=== PATIENT | male | born 1955 | race Caucasian/White ===

== ENCOUNTER 2017-02-08 05:00 | Day surgery (SDC) | payer MEDICARE ==
--- NOTE | 2017-02-06 13:37 | RAD ---
EXAM DESCRIPTION: Chest,2 Views CLINICAL HISTORY: pre op COMPARISON: None available FINDINGS: The cardiomediastinal silhouette is unremarkable. No airspace consolidation or pleural effusion. The bronchovascular markings are within normal limits. The lung volumes are at the upper limits of normal range. Postoperative changes are noted in the right shoulder and cervical spine, only partially visualized. No fracture or pneumothorax. There are mild degenerative changes at a few levels in the lower thoracic spine. IMPRESSION: Postoperative and mild degenerative changes, but no acute intrathoracic abnormality. Electronically signed by: Benjamín Pacheco MD 02/06/2017 1:36 PM CDT
[2017-02-08] MEDS ORDERED: SODIUM CHL 0.9% 100ML MINI-BAG 100 ML IVPB ONE (06:36)
[2017-02-08] MEDS ORDERED: ceFAZolin SODIUM 1 GM VIAL ONE (06:37)
[2017-02-08] MEDS ORDERED: LACTATED RINGERS 1,000 ML ONE (06:37)
[2017-02-08] MEDS ORDERED: BUPIVACAINE 0.25% W/EPI 50 ML VIAL INJ ONE (06:55)
[2017-02-08] MEDS ORDERED: PROPOFOL 200 MG/20 ML VIAL IV ONE (07:00)
[2017-02-08] MEDS ORDERED: fentaNYL CITRATE INJ 50 MCG/ML AMP ONE (08:00)
[2017-02-08] MEDS ORDERED: LIDOCAINE 2 % GEL 5 ML TUBE TOP ONE (08:00)
--- NOTE | 2017-02-08 10:47 | OP ---
DATE OF PROCEDURE: 02/08/17 PREOPERATIVE DIAGNOSIS: 1. Recurrent right inguinal hernia. POSTOPERATIVE DIAGNOSIS: 1. Right inguinal hernia. PROCEDURE: 1. Repair of right inguinal hernia. SURGEON: Isidoro Trejo MD. INSIDE PLANT SUPERVISOR: None. ANESTHESIA: Local infiltration of 0.25% Marcaine with epinephrine and general anesthesia. INDICATION: The patient is a 61-year-old male who had a tender mass in his right groin. It had been present for some time. It had become increasingly uncomfortable and he also has knee surgery scheduled for a knee replacement and he wishes to have the hernia repaired prior to this so he could go through rehab more easily. He was brought to the Surgical Suite today for repair of the right inguinal hernia after the risks, benefits and alternatives to the procedure were discussed and accepted. FINDINGS: The patient had a large indirect hernia, a small cord lipoma and a generalized weakness of the floor of the canal without discrete herniation. There was no evidence of previous surgery on the inguinal canal or the cord. PROCEDURE: After the patient was brought to the Surgical Suite and placed in supine position, he underwent general anesthesia and was prepped and draped in the usual sterile manner. He was given IV Ancef preoperatively. A surgical time-out was taken. An oblique incision was fashioned in the right lower quadrant, first with a marking pen and then with infiltration of anesthesia. The skin was incised with a knife and dissection was carried down through the skin and subcutaneous tissue to the external oblique fascia using electrocautery and blunt dissection. The external oblique fascia was then opened in the direction of the fibers through the external inguinal ring. The external oblique fascia was dissected free from the floor of the canal, as was the spermatic cord. A half inch [place] drain was placed around the cord for traction. The cord was then explored and the indirect hernia sac was dissected free down to the level of the internal ring. A small lipoma was dissected using clamps and ligatures of 3-0 Vicryl. When this was done, the floor was noted to have just some looseness without discrete herniation, so the floor of the canal medial to the vessels was imbricated with interrupted 2-0 Vicryl [id number] sutures. When this was done, a Surgimesh patch was introduced under the floor of the canal and sutured circumferentially with interrupted 2-0 Vicryl sutures. The wound was irrigated with saline. Hemostasis was noted to be adequate. The Surgimesh patch was then sutured around the cord in the floor of the canal in the usual manner with 2-0 Vicryl simple sutures. The wound was then irrigated with saline. Again, hemostasis was noted to be adequate. The nerve, which had previously been dissected free, and the cord were placed back in position in the canal. The external oblique fascia was closed with a running 3-0 Vicryl suture. At this point, the cord and the subcutaneous tissue above, below and lateral to the incision were infiltrated with local anesthesia. Basilio's fascia was approximated with simple sutures of 3-0 Chromic. Skin edges were approximated with a skin stapler. Sterile dressings were applied. The testicle was checked for position in the scrotum. The patient was awakened and taken to the Recovery Room in stable condition. Estimated blood loss was less than 50 mL. All sponge, needle and instrument counts were correct. #[id number] [facility]
[2017-02-08 11:09] VITALS: O2SAT 99
[2017-02-08 11:51] VITALS: BP 132/82; TEMP 98
== END 2017-02-08 11:49 | disposition home or self-care (01) ==
LOC: AMB 05:00
PROVIDERS: ATTEND Surgery
DX: K40.91 Unilateral inguinal hernia, without obstruction or gangrene, recurrent (principal); D17.6 Benign lipomatous neoplasm of spermatic cord; I10 Essential (primary) hypertension; K21.9 Gastro-esophageal reflux disease without esophagitis; Z96.652 Presence of left artificial knee joint; Z96.643 Presence of artificial hip joint, bilateral; Z87.891 Personal history of nicotine dependence
CPT/HCPCS: 00830; 36415; 49520; 71020; 80048; 81001; 85025; 93005; C1781; J0690; J3010; J3490; J7050; J7120

== ENCOUNTER → 2018-05-14 | Outpatient (CLI) | payer MEDICARE | LOC: GMAE 14:36 | PROVIDERS: ATTEND Family Medicine | DX: R03.0 Elevated blood-pressure reading, without diagnosis of hypertension (principal); R53.82 Chronic fatigue, unspecified; Z12.5 Encounter for screening for malignant neoplasm of prostate; Z11.59 Encounter for screening for other viral diseases | CPT/HCPCS: 86803; G0103 ==

== ENCOUNTER → 2018-05-20 | Outpatient (CLI) | payer MEDICARE ==
--- NOTE | 2018-05-20 15:14 | US ---
EXAM DESCRIPTION: Liver: ULTRASOUND. CLINICAL HISTORY: F10.10 COMPARISON: Gallbladder ultrasound 08/01/2011. TECHNIQUE: Transabdominal scannin-dimensional and Doppler modes. FINDINGS: Gallbladder: Surgically removed. No fluid in the gallbladder fossa. Non-tender with transducer pressure. Common bile duct: caliber 3 mm within normal limits. Liver: Increased echogenicity; contour liver capsule smooth where seen. No fluid around the liver. Intrahepatic biliary ducts normal caliber. Doppler hepatopedal flow portal vein. Long axis right lobe 14.2 cm. Pancreas: normal size and echogenicity of the included tissue. Duct not seen. Right kidney: long axis measures 10.7 cm. Slightly increased cortical Echogenicity. Minimal cortical thinning. Smooth capsule. No hydronephrosis. Abdominal aorta normal caliber from the proximal segment to the distal bifurcation. IMPRESSION: 1. Prior cholecystectomy since the prior study. Nontender. No fluid in the gallbladder fossa or Morison's pouch. 2. Hepatic steatosis since the prior study but not enlarged. Smooth capsule with no ascites. Normal vascularity and ducts. 3. Normal caliber of the abdominal aorta. Included pancreas is unremarkable. Right kidney normal size with minimal cortical echogenicity and thinning but no hydronephrosis. Electronically signed by: Ralph Harris MD 05/20/2018 3:12 PM DESK EDITOR
== END ==
LOC: US 08:45
PROVIDERS: ATTEND Family Medicine
DX: F10.10 Alcohol abuse, uncomplicated (principal); Z13.89 Encounter for screening for other disorder; K76.0 Fatty (change of) liver, not elsewhere classified; Z90.49 Acquired absence of other specified parts of digestive tract

== ENCOUNTER → 2018-05-30 | Outpatient (CLI) | payer MEDICARE, OTHER ==
--- NOTE | 2018-05-30 10:49 | CT ---
Procedure: CT LUNG SCREENING Exam Date: 05.30.2018. Ordering Provider: Rohit Townsend Clinical Indication: HISTORY OF TOBACCO DEPENDENCY This patient meets eligibility criteria for low-dose CT lung cancer screening. Comparison: Chest x-ray 02/06/2017. Technique: Using a multislice scanner, sequential helical axial imaging was obtained in the thorax, 2.5 mm thickness, 2.5 mm separation, from the level of the thoracic inlet through the lung bases without IV contrast. A low dose protocol was utilized: CTDI: 1.77 mGy. 120. kVp. 45 mA. DLP 72.36 mGy-centimeters. 2D sagittal and coronal reconstructed images, 6.0 mm thickness, were obtained. This exam was performed according to our departmental dose optimization program which includes use of automated exposure control, adjustment of the mA and/or kV according to patient size and/or use of iterative reconstruction technique. Nodule measurements under 10 mm are given as mean value of 3 axes diameters. FINDINGS: Lungs and large airways: 10 cm solid density associated with the right apical pleura or abutting the pleura. Lung axial series 2, image 14. Scarring in the inferior lingula and inferior right middle lobe. Bilateral parenchymal blebs In the lung parenchyma more prevalent upper lobes and decreasing in frequency toward the lung bases. No abnormal masses or focal infiltrates. Pleura and space: Multiple bilateral foci of pleural thickening especially abutting the upper lobes. Bilateral apical pleural thickening more on the left. No effusion or pneumothorax. Mediastinum and grace: evaluation limited by low dose technique and lack of IV contrast. No enlarged lymph nodes or soft tissue masses. Heart and great vessels: Atherosclerotic calcification in the coronary arteries, proximal brachiocephalic vessels, aortic arch and distal descending thoracic aorta. Chest wall, lower neck, axillae: Evaluation also limited by same factors as described above. Negative. Upper abdomen: No fluid or soft tissue mass in the included peritoneal space. Included adrenal gland and spleen normal size and density. Surgical clips in the gallbladder fossa with no fluid. Osseous structures: Evaluation limited by low dose MIP technique. Minimal endplate ridging on the thoracic spine. No blastic or lytic lesions. Bilateral sternoclavicular arthrosis. IMPRESSION: 10 cm solid density associated with right apical pleural thickening versus 10 cm solid nodule. Emphysematous changes in the upper lobes of the lungs. Bilateral pleural thickening most prominent abutting the upper lobes. No definitive nodules, masses, or infiltrates. See the following for [facility] Best Practice recommendations. Please see below for Lung RADS category and FOLLOW-UP.* *Lung RADS category Category 4a - Findings for which additional diagnostic testing and/or tissue sampling is recommended (5 - 15% malignancy probability). Nodules: Solid nodule(s) 8mm to less than 15mm at baseline, new 6mm to under 8mm solid nodule, or growing less than 8mm nodule. Follow-up: Please return for a Low Dose Chest CT in 3 months for re-evaluation. Electronically signed by: Ralph Harris MD 05/30/2018 10:47 AM [facility]
== END ==
LOC: CT 08:00
PROVIDERS: ATTEND Family Medicine
DX: Z87.891 Personal history of nicotine dependence (principal)

== ENCOUNTER → 2018-10-21 | Outpatient (CLI) | payer MEDICARE, OTHER ==
--- NOTE | 2018-10-22 08:51 | CT ---
EXAM DESCRIPTION: Chest w/o Contrast : Computed Tomography. CLINICAL HISTORY: 63 years Male LUNG NODULE, TOBACCO USE. Follow-up to abnormal baseline low-dose lung screening chest CT scan COMPARISON: BASELINE LOW-DOSE LUNG SCREENING CHEST CT SCAN 05/30/2018. CT scan the abdomen and pelvis without contrast 07/27/2011. TECHNIQUE: Spiral-axial scans at 2.5 x 5 mm intervals through the lungs and thorax without IV contrast. 2.5 mm lung algorithm axial reconstructions. Sagittal and coronal 2.0 Mm reconstructions. No adverse reactions. Total Exam DLP: 655.52 mGy-cm. This exam was performed according to our departmental dose-optimization program which includes automated exposure control, adjustment of the mA and/or kV according to patient size and/or use of iterative reconstruction technique; to reduce radiation dose to as low as reasonably achievable (ALARA). Nodule measurements under 10 mm are given as mean value of 3 axes diameters. FINDINGS: Lungs and large airways: Stable subpleural 1 cm nodule versus right apical pleural thickening. No new nodules, no abnormal nodules or masses. No focal infiltrate.. Pleural spaces: Bilateral multifocal pleural thickening. More the apices. No pleural effusion or pneumothorax. Mediastinum and Carlotta: Evaluation limited due to lack of IV contrast. No enlarged lymph nodes or soft tissue masses. Great vessels and Heart: Evaluation limited due to lack of IV contrast.. Coronary artery calcification. Atherosclerotic calcifications and some of the included brachiocephalic vessels and thoracic aorta. Soft tissues of neck base, axillae, and chest wall: Evaluation limited due to lack of IV contrast.. Negative. Upper abdomen: No fluid or free air in the included peritoneal space. Normal size and density of the bilateral adrenal glands and the spleen. Heterogeneous predominantly low-density in the upper segment of the right hepatic lobe. Slight heterogeneity of the liver on the prior abdominal CT scan in 2011. This may be related to fatty infiltration. Surgical clips in the gallbladder fossa. Atherosclerotic changes in the abdominal aorta. Osseous structures: Decreased bone density. Spondylosis of the thoracic spine and arthrosis of the sternoclavicular joints. Prior surgical repair right shoulder. Mild arthrosis. Mild scoliosis. IMPRESSION: 1. Stable subpleural nodule versus pleural thickening right apex. No change in multiple focal pleural thickening. No new nodules, masses, or infiltrates. [facility] Best Practice guidelines: Please see below for lung RADS category and imaging recommendations*. *CATEGORY 2S- Nodules with a very low likelihood (less than 1%) of becoming a clinically active cancer due to size or lack of growth. Nodules: Perifissural nodule(s) < 10 mm. (526mm3). Solid or part solid nodule(s) less than 6mm (113.1 mm3), new solid nodule less than 4mm (33.5 mm3). Ground glass nodule(s) less than 30mm (25520.2 mm3) or unchanged or slow growing ground glass nodule 30mm or greater. Cat 3 or 4 nodule unchanged for 3 or more months. FOLLOW-UP: Continue annual screening with a Low Dose Chest CT in 12 months for re-evaluation. 2. CATEGORY S: Lung RADS Modifier S - Clinically Significant or Potentially Clinically Significant Findings (non lung cancer). Ill-defined region of low-density in the upper right liver. Not as well seen on the prior screening study. Most likely fatty replacement. Consider triple phase CT scan of the liver without and with IV contrast. Electronically signed by: Ralph Harris MD 10/22/2018 8:48 AM CDT
== END ==
LOC: CT 11:14
PROVIDERS: ATTEND Family Medicine
DX: Z87.891 Personal history of nicotine dependence (principal); R91.1 Solitary pulmonary nodule

== ENCOUNTER → 2019-04-14 | Outpatient (CLI) | payer MEDICARE ==
--- NOTE | 2019-04-14 11:25 | CT ---
CT CHEST WITHOUT IV CONTRAST HISTORY: 63 years Male COPD COMPARISON: October 21, 2018; May 30, 2018. TECHNIQUE: Helical tomographic images of the chest were obtained without the use of intravenous contrast. Coronal and sagittal reformatted images were also provided. This exam was performed according to our departmental dose-optimization program, which includes automated exposure control, adjustment of the mA and/or kV according to patient size and/or use of iterative reconstruction technique. FINDINGS: Lungs and central airways: Redemonstrated radiologic changes of emphysema. Unchanged appearance of bilateral lung apices, likely customer field representative of scarring. This includes the previously noted subpleural opacities. No suspicious pulmonary nodule or mass. Pleura: No pleural effusion or pleural thickening. Heart/pericardium: Heart size is normal. No significant pericardial fluid detected. Mediastinum/grace: Unremarkable. Vascular structures: There are scattered atherosclerotic changes noted, including involvement of the coronary arteries. Regional surrounding soft tissues: Unremarkable. Bones: No acute process detected. Right scapula fixation screw again demonstrated, unchanged. Included abdomen: There is diffuse hypoattenuation of the liver, compatible with hepatic steatosis. Gallbladder is surgically absent. IMPRESSION: No suspicious pulmonary nodule or mass. Hepatic steatosis. Electronically signed by: Uday Chan MD 04/14/2019 11:24 AM MOBILE SALES TECHNICIAN
== END ==
LOC: CT 10:23
PROVIDERS: ATTEND Internal Medicine
DX: J44.9 Chronic obstructive pulmonary disease, unspecified (principal); K76.0 Fatty (change of) liver, not elsewhere classified

== ENCOUNTER → 2019-10-29 | Outpatient (CLI) | payer MEDICARE, OTHER ==
--- NOTE | 2019-10-30 08:34 | CT ---
Procedure: CT LUNG SCREENING Exam Date: October 29, 2019. Ordering Provider: Rohit Townsend Clinical Indication: PERSONAL HISTORY OF NICOTINE DEPENDENCE smoking cessation x7 years. 90 pack years This patient meets eligibility criteria for low-dose CT lung cancer screening. Comparison: CT scan chest without contrast March and September 2018. Low-dose CT lung cancer screening April 2018. Technique: Using a multislice scanner, sequential helical axial imaging was obtained in the thorax, 2.5 mm thickness, 2.5 mm separation, from the level of the thoracic inlet through the lung bases without IV contrast. A low dose protocol was utilized for BMI less than 30: BMI: 29.1. CTDI: 1.76 mGy. 120. kVp. 45 mA. DLP 78 mGy-cm. 2D sagittal and coronal reconstructed images, 6.0 mm thickness, were obtained. This exam was performed according to our departmental dose optimization program which includes use of automated exposure control, adjustment of the mA and/or kV according to patient size and/or use of iterative reconstruction technique. Nodule measurements under 10 mm are given as mean value of 3 axes diameters. FINDINGS: Lungs and large airways: Pleural parenchymal scarring bilateral apices more on the left stable. Minimal bilateral blebs in a centrilobular distribution stable. Minimal bilateral perihilar peribronchial wall cuffing. Groundglass nodules 3 mm and less in the left upper lobe stable. Bilateral subpleural densities and groundglass nodules 3 mm and less. Minimal pleural-parenchymal scarring in the middle lobe and the inferior lingula as well as the bilateral lower lobes. No new nodules and no masses. No focal infiltrates. Pleura and space: Bilateral multifocal thickening and bilateral apical pleural scarring stable. Mediastinum and grace: evaluation limited by low dose technique and lack of IV contrast. Small lymph nodes with no dominant soft tissue masses. No interval change. Heart and great vessels: Coronary artery calcifications and atherosclerotic calcifications in the brachiocephalic vessels and aorta no change from the prior study. Chest wall, lower neck, axillae: Evaluation also limited by same factors as described above. Unremarkable. Upper abdomen: Evaluation limited by low-dose technique. No free air or free fluid. Adrenal glands and spleen negative. Surgical clips gallbladder fossa with a rim calcified nodular mass or object in the gallbladder fossa stable. Osseous structures: Evaluation limited by low dose MIP technique. Diffuse thoracic spondylosis mid segments. Bilateral sternoclavicular and glenohumeral arthrosis more on the left. IMPRESSION: Small subclinical subpleural nodules and groundglass nodules bilaterally stable. Minimal emphysematous changes unchanged. No new nodules and no masses. No focal infiltrates. [facility] Best Practice Recommendations: please see below for Lung RADS category and FOLLOW-UP.* *Lung RADS category CATEGORY 2- Nodules with a very low likelihood (less than 1%) of becoming a clinically active cancer due to size or lack of growth. Nodules: Perifissural nodule(s) < 10 mm. (526mm3). Solid or part solid nodule(s) less than 6mm (113.1 mm3), new solid nodule less than 4mm (33.5 mm3). Ground glass nodule(s) less than 30mm (98599.2 mm3) or unchanged or slow growing ground glass nodule 30mm or greater. Cat 3 or 4 nodule unchanged for 3 or more months. FOLLOW-UP: Continue annual screening with a Low Dose Chest CT in 12 months for re-evaluation. . Electronically signed by: Ralph Harris MD 10/30/2019 8:33 AM CDT
== END ==
LOC: CT 09:37
PROVIDERS: ATTEND Family Medicine
DX: Z87.891 Personal history of nicotine dependence (principal); R91.8 Other nonspecific abnormal finding of lung field; J43.9 Emphysema, unspecified; Z12.5 Encounter for screening for malignant neoplasm of prostate; I10 Essential (primary) hypertension
CPT/HCPCS: 84443; G0103; G0297

== ENCOUNTER → 2020-03-19 | Outpatient (CLI) | payer MEDICARE, OTHER ==
--- NOTE | 2020-03-19 17:11 | CT ---
EXAM DESCRIPTION: Chest w/o Contrast CLINICAL HISTORY: 64 years, Male, SOLITARY LUNG NODULE COMPARISON: Previous screening CT examination of the lungs October 29, 2019 TECHNIQUE: Thin-section noncontrast axial CT images are obtained according to our protocol. Reconstructed MPR images are created and reviewed as well. FINDINGS: Lungs: No consolidating pulmonary infiltrate or groundglass infiltrate. Biapical pleural-parenchymal scarring. In areas of scarring, few punctate subpleural densities are seen which could be construed as tiny nodules that are thought more likely part of the fibrotic changes. No nodules above the size of 1 to 2 mm. These are considered punctate and no measurements are obtained. No change compared to previous study. No worrisome pulmonary mass or nodule. Mediastinum: Lymph nodes are normal in size. Normal vascular contours. Heart size is normal with no pericardial effusion. Chest wall/axilla: No mass or adenopathy. Lower neck/supraclavicular: No mass or adenopathy. Upper abdomen: Unremarkable upper abdominal viscera. Coronal and sagittal reformatted images confirm the findings. Extensive coronary arterial calcification. IMPRESSION: No active process is identified in the chest. Subpleural scarring and punctate granulomas appears stable. This exam was performed according to our departmental dose-optimization program, which includes automated exposure control, adjustment of the mA and/or kV according to patient size and/or use of iterative reconstruction technique. Total DLP equals 784.22 mGycm. Electronically signed by: Trip Lawrence MD 03/19/2020 5:09 PM RESEARCH DEVELOPMENT DIRECTOR
== END ==
LOC: CT 10:30
PROVIDERS: ATTEND Internal Medicine
DX: R91.1 Solitary pulmonary nodule (principal); J98.4 Other disorders of lung

== ENCOUNTER 2020-06-06 16:45 | Emergency (ER) | payer MEDICARE, OTHER ==
[2020-06-06] MEDS ORDERED: SODIUM CHLORIDE 0.9% 1000ML 1,000 ML IVS PRN (17:01)
[2020-06-06] MEDS ORDERED: SODIUM CHLORIDE 0.9% (FLUSH) 10 ML SYG IV PRN (17:01)
--- NOTE | 2020-06-06 17:08 | ED.PDOC ---
History of Present Illness - General Chief Complaint: Neuro Symptoms/Deficits Time Seen by Provider: 06/06/20 16:58 Source: patient, RN notes reviewed, Vital Signs reviewed, EMS notes reviewed, family Exam Limitations: no limitations - History of Present Illness Initial Comments: Pt presents via EMS for decreased LOC. Per 2 sons at the bedside, pt has h/o alcohol abuse. they have not seen him for 3-4 days and when they went to his house today he was difficult to arouse and called EMS. Pt is somnolent and unable to provide additional history. Last known normal was 3 days ago. Son states bruising to left chest wall and right 2nd toe are new from 3 days ago. Pt moans but does not answer questions. Allergies/Adverse Reactions: Allergies NO KNOWN ALLERGY Allergy (Verified 06/06/20 17:13) Home Medications: Ambulatory Orders NK 02/08/17 Review of Systems - Review of Systems Unable to Obtain Due To: clinical condition Past Medical History (General) - Patient Medical History Hx Congestive Heart Failure: No Hx Diabetes: No Hx MRSA: No Family Medical History - Family History Mother Family History: Unknown Living Status: Physical Exam - Physical Exam General Appearance: Unkempt, Other - Pt moans and grabs at staff and IV, but does not answer questions. Smells of ETOH Eye Exam: bilateral normal - PERRL Ears, Nose, Throat: other - Head is atraumatic, oral mucosa is dry Neck: non-tender, supple, other - No vertebral tenderness Respiratory: lungs clear, normal breath sounds, no respiratory distress, other - 8 cm area of contusion to left lateral ribs and tenderness in this area Cardiovascular/Chest: normal peripheral pulses, regular rate, rhythm, no edema Gastrointestinal/Abdominal: non tender, soft, no pulsatile mass Back Exam: normal inspection, no CVA tenderness, no vertebral tenderness Extremity: other - FROM in all 4 extremities w/o pain. There is abrasion with edema to right 2nd toe. No laceration or bleeding Neurologic: other - Pt is alert, but noncooperative. No facial droop. he is moving all 4 extremities. Does not follow commands Skin Exam: warm/dry Progress - Progress Progress: 06/06/20 17:12 Pt presents with decreased LOC. Last known normal was 3 days ago. Has h/o alcohol abuse. Will get CT brain to eval for ICH vs CVA and trauma scans. Give IVF and observe in ED. Two sons at bedside. 06/06/20 19:00 Pt has been noncooperative with CT so held for now. Due to ETOH>560, he is not a good candidate for sedation. I think his change in MS is due to alcohol intoxication. Will continue to monitor in ED. Son asked to speak with me and states pt has told him recently that he is tired of living like this. Son is concerned pt may be trying to kill himself by drinking himself to . I have told son that once pt is more conversational, will request behavior health evaluation with [facility]. 06/07/20 00:15 Pt is alert and conversational. Will ask [facility] for psych evaluation. Pt is medically cleared for psych evaluation. 06/07/20 00:55 [facility] has evaluated patient. No SI and not a danger to self or others at this time. They have scheduled outpatient f/u with him and will help find inpatient rehab if he is willing. I have discussed this with patient and he agrees with plan of care and requesting to go home. He denies any intent to harm himself and feels comfortable going home with his son. 06/07/20 05:12 Pt awaiting ride. He is ambulatory in ED and clinically sober. no slurred speech. He is answering questions appropriately. Will continue to observe in ED while pt attemptng to find a ride. - Results/Orders Results/Orders: EKG- rate 121, sinus tachycardia, nml intervals, no ST abnormality CT BRAIN FINDINGS: Multiple transaxial tomograms of the brain were obtained from the base of the skull to the vertex without contrast. 2-D multiplanar reformats and the coronal and sagittal plane were performed and reviewed. An individualized dose optimization technique, Automated Exposure Control, was utilized for the performed procedure. Motion artifact limits the evaluation. Grossly the parenchyma demonstrate no major areas of acute fracture and/or significant major plane shift. Grossly the lateral ventricles and cisterns displace normal appea elysia. No major intra or extra axial fluid collections were seen. There is no significant major fracture. There is status post prior left frontoparietal craniotomy orbits demonstrate to be clear. IMPRESSION: SEVERELY COMPROMISED STUDY LIMITING DIAGNOSTIC VALUE. IF CONCERN REPEAT HEAD CT COULD BE OF ASSISTANCE. THERE IS STATUS POST PRIOR LEFT CRANIOTOMY. NO SIGNIFICANT MAJOR AREAS OF ACUTE HEMORRHAGE WITHIN THE LIMITED EVALUATION. CT CERVICAL SPINE FINDINGS: There is a status post cervical fusion with the anterior plate fixation device at C3/C4. Small anterior osteophytes/bone bridging is noted at C4/C5 and small anterior spondylosis is identified at C6/C7. The rest of the alignment, vertebral body heights are normal. There is no evidence of fracture or subluxation. Minimal degenerative disc disease is noted at C2/C3 and C4/C5 C6/C7 there is degenerative disc disease anterior arch of C1 and C2. There is no significant spinal canal stenosis and/or significant neural foraminal narrowing. There is fusion of the uncovertebral joint of C2/C3 C3/C4 along the right and left side. There is uncovertebral degenerative changes at C4-C7. There is no prevertebral soft tissue swelling. Sagittal coronal reformatted images demonstrate no subluxation or bony abnormalities. IMPRESSION: STATUS POST ANTERIOR PLATE FIXATION DEVICE WITH BONE GRAFTING AT C3/C4. MULTILEVEL DEGENERATIVE DISC DISEASE WITH NO DEFINITIVE EVIDENCE FOR SPINAL CANAL STENOSIS. CT CERVICAL SPINE NEGATIVE FOR FRACTURE OR SUBLUXATION. CT CHEST/ABD/PELVIS IMPRESSION: COMPARTMENT STUDY DUE TO MOTION ARTIFACT LIMITING DIAGNOSTIC VALUE. ATHEROSCLEROTIC DISEASE CORONARY ARTERIES. NO GROSS ABNORMALITIES. IMPRESSION: FATTY FILTRATION OF THE LIVER. STATUS POST CHOLECYSTECTOMY. BILATERAL HIP ARTHROPLASTY IMAGED EVALUATION OF THE PELVIS. DISTENDED URINARY BLADDER 2.8 CM INFRARENAL ABDOMINAL AORTIC ANEURYSM SUSPECTED. RECOMMEND FOLLOW- UP EVERY 5 YEARS.( REFERENCE: J AM EVAN RADIOL 2013; [id number]). NO DEFINITIVE EVIDENCE FOR ACUTE INTRA-ABDOMINAL PROCESS. RIGHT FOOT XRAY FINDINGS: Two x-ray views of the right foot were submitted. Frontal view is not available. There is no acute fracture or dislocation. Bone mineralization is within normal limits. There is no radiopaque foreign body material. There is an enthesophyte at the plantar aspect of the calcaneus. IMPRESSION: No acute fracture or dislocation. CHEST XRAY FINDINGS: Cardiac silhouette is within normal limits. Decreased lung volumes could be secondary to underinflation. EKG leads project over the chest. There is no focal parenchymal or pleural disease. There is no acute osseous process visualized. IMPRESSION: No evidence of acute cardiopulmonary disease. 06/06/20 17:01 Sodium Chloride 0.9% (Flush) [Saline Flush Syringe] 10 ml IV PRN PRN Sodium Chloride 0.9% 1000ML [Ns 1000 ml] 1,000 ml IVS .QD EKG Stat 06/06/20 17:02 Hold Metformin x 48Hrs [id number] 06/07/20 09:00 Pulse Ox Daily Laboratory Results - last 24 hr 06/06/20 06/06/20 06/06/20 17:13 17:13 17:13 WBC 6.9 RBC 4.04 L Hgb 13.1 L Hct 38.7 L MCV 95.7 H MCH 32.3 H MCHC 33.7 RDW 16.2 H Plt Count 150 MPV 7.5 Absolute Neuts (auto) 4.10 Absolute Lymphs (auto) 2.20 Absolute Monos (auto) 0.50 Absolute Eos (auto) 0.00 Absolute Basos (auto) 0.00 Neutrophils % 59.4 Lymphocytes % 32.1 Monocytes % 7.6 Eosinophils % 0.4 L Basophils % 0.5 PT 10.9 INR 1.10 PTT (SP) 22.7 Sodium 146 H Potassium 2.9 L Chloride 111 Carbon Dioxide 22 Anion Gap 15.9 BUN < 6 L Creatinine 0.67 BUN/Creatinine Ratio 9.0 L Random Glucose 210 H Serum Osmolality 294.4 Calcium 7.8 L Total Bilirubin 0.6 AST 217 H ALT 82 H Alkaline Phosphatase 98 Creatine Kinase 380 H* CK-MB (CK-2) 6.8 H* CK-MB (CK-2) % 1.79 Troponin I < 0.02 Serum Total Protein 6.5 Albumin 3.4 Globulin 3.1 Albumin/Globulin Ratio 1.1 Urine Color Urine Appearance Urine pH Ur Specific [place] Urine Protein Urine Glucose (UA) Urine Ketones Urine Blood Urine Nitrite Urine Bilirubin Urine Urobilinogen Ur Leukocyte Esterase Urine RBC Urine WBC Ur Epithelial Cells Urine Bacteria Urine Opiates Screen Urine Barbiturates Ur Phencyclidine Scrn U Amphetamin/Meth Scrn U Benzodiazepines Scrn U Cocaine Metab Screen U Cannabinoids Screen Ethyl Alcohol 06/06/20 06/06/20 06/06/20 17:13 19:05 19:05 WBC RBC Hgb Hct MCV MCH MCHC RDW Plt Count MPV Absolute Neuts (auto) Absolute Lymphs (auto) Absolute Monos (auto) Absolute Eos (auto) Absolute Basos (auto) Neutrophils % Lymphocytes % Monocytes % Eosinophils % Basophils % PT INR PTT (SP) Sodium Potassium Chloride Carbon Dioxide Anion Gap BUN Creatinine BUN/Creatinine Ratio Random Glucose Serum Osmolality Calcium Total Bilirubin AST ALT Alkaline Phosphatase Creatine Kinase CK-MB (CK-2) CK-MB (CK-2) % Troponin I Serum Total Protein Albumin Globulin Albumin/Globulin Ratio Urine Color Yellow Urine Appearance Clear Urine pH 6.5 Ur Specific [place] 1.015 Urine Protein Negative Urine Glucose (UA) 100 H Urine Ketones Negative Urine Blood Trace-intact H Urine Nitrite Negative Urine Bilirubin Negative Urine Urobilinogen 1.0 Ur Leukocyte Esterase Negative Urine RBC 0 Urine WBC 0-1 Ur Epithelial Cells 0-1 Urine Bacteria 0 Urine Opiates Screen Negative Urine Barbiturates Negative Ur Phencyclidine Scrn Negative U Amphetamin/Meth Scrn Negative U Benzodiazepines Scrn Negative U Cocaine Metab Screen Negative U Cannabinoids Screen Negative Ethyl Alcohol > 560.00 H* Departure - Departure Clinical Impression: Abrasion, right foot, initial encounter Alcohol intoxication Qualifiers: Complication of substance-induced condition: uncomplicated Qualified Code(s): F10.920 - Alcohol use, unspecified with intoxication, uncomplicated Altered mental state Qualifiers: Altered mental status type: somnolence Qualified Code(s): R40.0 - Somnolence Contusion of rib on left side Qualifiers: Encounter type: initial encounter Qualified Code(s): S20.212A - Contusion of left front wall of thorax, initial encounter Time of Disposition: 00:58 Disposition: Discharge to Home or Self Care Condition: Fair Departure Forms: ED Discharge - Pt. Copy, Patient Portal Self Enrollment Instructions: Alcohol Abuse and Alcoholism (DC) Diet: resume usual diet Activity: increase activity as tolerated Referrals: ROSALES ROACH MD [Primary Care Provider] - 1-2 Days Home Medications: Ambulatory Orders NK 02/08/17 Additional Instructions: You need to follow up with [facility] as scheduled for continued evaluation and treatment
--- NOTE | 2020-06-06 17:53 | RAD ---
EXAM DESCRIPTION: Chest,1 View CLINICAL HISTORY: left chest contusion COMPARISON: February 06, 2017 FINDINGS: Cardiac silhouette is within normal limits. Decreased lung volumes could be secondary to underinflation. EKG leads project over the chest. There is no focal parenchymal or pleural disease. There is no acute osseous process visualized. IMPRESSION: No evidence of acute cardiopulmonary disease. Electronically signed by: Ubaldo Flores MD 06/06/2020 5:51 PM EMERGENCY MEDICINE MEDICAL DIRECTOR
--- NOTE | 2020-06-06 17:54 | RAD ---
EXAM DESCRIPTION: Foot,Right 2 Views CLINICAL HISTORY: 2nd toe injury COMPARISON: None FINDINGS: Two x-ray views of the right foot were submitted. Frontal view is not available. There is no acute fracture or dislocation. Bone mineralization is within normal limits. There is no radiopaque foreign body material. There is an enthesophyte at the plantar aspect of the calcaneus. IMPRESSION: No acute fracture or dislocation. Electronically signed by: Ubaldo Flores MD 06/06/2020 5:52 PM [facility]
[2020-06-06] MEDS ORDERED: PROMETHAZINE HCL INJ 12.5 MG in SODIUM CHLORIDE 0.9% 50ML 50 ML IVPB ONE (19:38)
--- NOTE | 2020-06-06 21:08 | CT ---
EXAM DESCRIPTION: Abdomen/Pelvis w/Contrast 06/06/2020 9:01 PM MARKETING PROJECT COORDINATOR CLINICAL HISTORY: 65 years, Male, AMS s/p fall COMPARISON: 07/27/2011 PROCEDURE: Contrast-enhanced images of the abdomen and pelvis were performed utilizing 2 mm slice thickness at 2 mm interval reconstruction from the lung bases to the ischial tuberosities after the administration of IV contrast. No dosing amount was provided for interpretation. In addition multiplanar reformats in the coronal and sagittal plane were obtained and reviewed. An individualized dose optimization technique, Automated Exposure Control, was utilized for the performed procedure. FINDINGS: Evaluation of the chest will be given in separate report. The presence of bilateral upper activities within the [id number] create streak artifact limiting diagnostic value The liver demonstrate decreased attenuation corresponding to fatty infiltration. Clips within the gallbladder fossa corresponding to previous cholecystectomy. The pancreas, spleen and adrenal glands demonstrate to be unremarkable, no focal lesions are noted. The kidneys demonstrate normal uptake and partial excretion of contrast media. No hydronephrosis and/or stones were identified. Grossly the unopacified stomach, small bowel and large bowel demonstrate to be within normal limits. Fecal residue and underdistention within the large bowel limits the evaluation. There is no evidence for bowel dilatation and/or free air. The appendix is normal. The presence of bilateral total hip arthroplasties limits the evaluation. The urinary bladder demonstrate to be distended. Grossly the visualized portions of the prostate are unremarkable. The aorta demonstrate atherosclerotic disease. There is mild dilatation of the infrarenal portion abdominal aorta measuring 2.7 x 2.8 cm on image 45. There is no retroperitoneal lymphadenopathy. There is no evidence for ascites and/or significant abnormal fluid collections. No significant retroperitoneal lymphadenopathy. The bone windows demonstrate minimal anterior spondylosis throughout the lumbar spine. Degenerative changes are seen at L5/S1 with minimal posterior facet hypertrophy at L4-S1. IMPRESSION: FATTY FILTRATION OF THE LIVER. STATUS POST CHOLECYSTECTOMY. BILATERAL HIP ARTHROPLASTY IMAGED EVALUATION OF THE PELVIS. DISTENDED URINARY BLADDER 2.8 CM INFRARENAL ABDOMINAL AORTIC ANEURYSM SUSPECTED. RECOMMEND FOLLOW-UP EVERY 5 YEARS.( REFERENCE: J AM EVAN RADIOL 2013; [id number]). NO DEFINITIVE EVIDENCE FOR ACUTE INTRA-ABDOMINAL PROCESS. Electronically signed by: Carlos Garcia MD 06/06/2020 9:06 PM MARKETING PROJECT COORDINATOR
--- NOTE | 2020-06-06 21:12 | CT ---
EXAM DESCRIPTION: Cervical Spine 06/06/2020 9:07 PM PAINT SPRAY TENDER CLINICAL HISTORY: 65 years, Male, AMS s/p fall COMPARISON: None PROCEDURE: Multiple axial CT images through the cervical spine were obtained at 2 mm slice thickness at 2 mm interval reconstruction. In addition 2-D multiplanar reformats and the sagittal coronal plane were performed and reviewed. An individualized dose optimization technique, Automated Exposure Control, was utilized for the performed procedure. FINDINGS: There is a status post cervical fusion with the anterior plate fixation device at C3/C4. Small anterior osteophytes/bone bridging is noted at C4/C5 and small anterior spondylosis is identified at C6/C7. The rest of the alignment, vertebral body heights are normal. There is no evidence of fracture or subluxation. Minimal degenerative disc disease is noted at C2/C3 and C4/C5 C6/C7 there is degenerative disc disease anterior arch of C1 and C2. There is no significant spinal canal stenosis and/or significant neural foraminal narrowing. There is fusion of the uncovertebral joint of C2/C3 C3/C4 along the right and left side. There is uncovertebral degenerative changes at C4-C7. There is no prevertebral soft tissue swelling. Sagittal coronal reformatted images demonstrate no subluxation or bony abnormalities. IMPRESSION: STATUS POST ANTERIOR PLATE FIXATION DEVICE WITH BONE GRAFTING AT C3/C4. MULTILEVEL DEGENERATIVE DISC DISEASE WITH NO DEFINITIVE EVIDENCE FOR SPINAL CANAL STENOSIS. CT CERVICAL SPINE NEGATIVE FOR FRACTURE OR SUBLUXATION. Electronically signed by: Carlos Garcia MD 06/06/2020 9:10 PM PAINT SPRAY TENDER
--- NOTE | 2020-06-06 21:16 | CT ---
EXAM DESCRIPTION: Chest w/Contrast 06/06/2020 9:11 PM SHIRT PRESSER CLINICAL HISTORY: 65 years, Male, AMS s/p fall COMPARISON: 03/19/2020 FINDINGS: Multiple transaxial tomograms of the chest were obtained from the lung apices through the adrenal glands, utilizing 5 mm slice thickness at 5 mm interval reconstruction after the administration of IV contrast. No dosing amount was provided for interpretation. Multiplanar reformats in the sagittal and coronal plane were generated and reviewed. An individualized dose optimization technique, Automated Exposure Control, was utilized for the performed procedure. Motion artifact limits the evaluation as well as bilateral upper extremities within the field of imaging. Motion artifact limits greatly the evaluation. No significant pneumothorax. Grossly the trachea mainstem bronchus demonstrate to be normal. There is no gross significant pleural and/or pericardial effusions. The heart is normal in size. Grossly the aorta aorta demonstrate intimal aortic arch calcification. No significant dissection. Coronary atherosclerosis. There is no significant mediastinal and/or hilar lymphadenopathy. The axillary regions demonstrate to be clear. The bone windows demonstrate no significant skeletal lesions. Evaluation of the abdomen and pelvis will be given in a separate report. IMPRESSION: COMPARTMENT STUDY DUE TO MOTION ARTIFACT LIMITING DIAGNOSTIC VALUE. ATHEROSCLEROTIC DISEASE CORONARY ARTERIES. NO GROSS ABNORMALITIES. Electronically signed by: Carlos Garcia MD 06/06/2020 9:14 PM SHIRT PRESSER
--- NOTE | 2020-06-06 21:18 | CT ---
EXAM DESCRIPTION: Head 06/06/2020 9:15 PM DATABASE MANAGER CLINICAL HISTORY: 65 years, Male, AMS s/p fall COMPARISON: None. FINDINGS: Multiple transaxial tomograms of the brain were obtained from the base of the skull to the vertex without contrast. 2-D multiplanar reformats and the coronal and sagittal plane were performed and reviewed. An individualized dose optimization technique, Automated Exposure Control, was utilized for the performed procedure. Motion artifact limits the evaluation. Grossly the parenchyma demonstrate no major areas of acute fracture and/or significant major plane shift. Grossly the lateral ventricles and cisterns displace normal appearance. No major intra or extra axial fluid collections were seen. There is no significant major fracture. There is status post prior left frontoparietal craniotomy orbits demonstrate to be clear. IMPRESSION: SEVERELY COMPROMISED STUDY LIMITING DIAGNOSTIC VALUE. IF CONCERN REPEAT HEAD CT COULD BE OF ASSISTANCE. THERE IS STATUS POST PRIOR LEFT CRANIOTOMY. NO SIGNIFICANT MAJOR AREAS OF ACUTE HEMORRHAGE WITHIN THE LIMITED EVALUATION. Electronically signed by: Carlos Garcia MD 06/06/2020 9:16 PM DATABASE MANAGER
[2020-06-07 06:34] VITALS: TEMP 97.5
[2020-06-07 06:35] VITALS: BP 156/91; O2SAT 99
== END 2020-06-07 06:34 | disposition home or self-care (01) ==
LOC: ER 16:45
DX: F10.129 Alcohol abuse with intoxication, unspecified (principal); R40.0 Somnolence; S20.212A Contusion of left front wall of thorax, initial encounter; S90.811A Abrasion, right foot, initial encounter; M50.323 Other cervical disc degeneration at C6-C7 level; K76.0 Fatty (change of) liver, not elsewhere classified; Z96.643 Presence of artificial hip joint, bilateral; Z98.890 Other specified postprocedural states; R00.0 Tachycardia, unspecified; X58.XXXA Exposure to other specified factors, initial encounter; Y92.9 Unspecified place or not applicable
CPT/HCPCS: 36415; 70450; 71045; 71260; 72125; 73620; 74177; 80053; 80307; 80320; 81001; 82550; 82553; 84484; 85025; 85610; 85730; 93005; J7030